=== PATIENT | female | born 1965 | race American Indian/Alaskan Native ===

== ENCOUNTER 2016-11-28 11:29 | Outpatient (CLI) | payer BC ==
--- NOTE | 2016-11-28 13:05 | Mammography Report ---
BILATERAL DIGITAL SCREENING MAMMOGRAM with CAD : 11/28/16 11:29:00 CLINICAL: Routine screening. COMPARISON:11/27/15 FINDINGS: The breasts are heterogeneously dense, which may obscure small masses. No mass, architectural distortion or suspicious calcifications. IMPRESSION: No mammographic evidence of malignancy. BI-RADS CATEGORY: 2 -- Benign RECOMMENDATION: Routine mammographic screening in one year. COMMENT: Patient follow-up letters are generated by our [employer] application.
== END 2016-11-28 11:30 | disposition home or self-care (01) ==
LOC: SPVWC 11:29
PROVIDERS: ATTEND Obstetrics & Gynecology
DX: Z12.31 Encounter for screening mammogram for malignant neoplasm of breast (principal)
CPT/HCPCS: 77067; G0202

== ENCOUNTER 2017-11-30 12:27 | Outpatient (CLI) | payer BC ==
--- NOTE | 2017-11-30 14:52 | Mammography Report ---
BILATERAL MAMMOGRAM: FINDINGS: The breast tissue is heterogeneously dense, which could obscure detection of small masses (approximately 50%-75% glandular). No mass, distortion, suspicious calcification, or skin change is seen. No significant change when compared to exams dating back to 2011. CAD was utilized. IMPRESSION: Negative mammogram. There is no mammographic evidence of malignancy. RECOMMENDATION: Follow-up per ACS guidelines. BI-RADS CATEGORY: 1 = Negative ACR BI-RADS MAMMOGRAPHIC CODES: 0 = Needs additional imaging evaluation; 1 = Negative; 2 = Benign; 3 = Probably benign; 4 = Suspicious; 5 = Malignant; 6 = Known biopsy-proven malignancy COMMENT: 1. Dense breast tissue, i.e., adenosis, fibrocystic changes, etc., may obscure an underlying neoplasm. 2. Approximately 10% of cancers are not detected with mammography. 3. A negative mammography report should not delay biopsy if a clinically suspicious mass is present. COMMENT: Patient follow-up letters are generated in [employer].
== END 2017-11-30 12:28 | disposition home or self-care (01) ==
LOC: SPVWC 12:27
PROVIDERS: ATTEND Obstetrics & Gynecology
DX: Z12.31 Encounter for screening mammogram for malignant neoplasm of breast (principal)
CPT/HCPCS: 77067

== ENCOUNTER 2018-12-18 15:13 | Outpatient (CLI) | payer BC ==
--- NOTE | 2018-12-18 16:34 | Mammography Report ---
BILATERAL DIGITAL SCREENING MAMMOGRAMS WITH CAD INDICATION: Screening. COMPARISONS: None. FINDINGS: Craniocaudal and mediolateral oblique views of both breasts were obtained using 2-D digital acquisition. In addition to standard review, the examination was analyzed for possible abnormalities using a compu ter-assisted detection device (iCAD). The breast tissue is heterogeneously dense, which may obscure small masses. A left outer asymmetry on the CC view requires additional imaging. No architectural distortion or denzel picious calcifications. The right breast is negative. IMPRESSION: Left asymmetry requiring additional imaging. Recommend recall for left ML and spot magnif ication cc views and left breast ultrasound if needed. BI-RADS CATEGORY 0: INCOMPLETE - NEED ADDITIONAL IMAGING EVALUATION AND/OR PRIOR MAMMOGRAMS FOR COMP ARISON Information is entered into a reminder system for a target due date for the next mammogram. The resul ts and recommendations were sent to the patient by mail. Signer Name: Maksmi Johnson MD Signed: 12/18/2018 4:30 PM Workstation Name: [id number]
== END 2018-12-18 15:14 | disposition home or self-care (01) ==
LOC: SPVWC 15:13
PROVIDERS: ATTEND Obstetrics & Gynecology
DX: Z12.31 Encounter for screening mammogram for malignant neoplasm of breast (principal)
CPT/HCPCS: 77067

== ENCOUNTER 2019-07-01 14:16 | Outpatient (CLI) | payer BC ==
--- NOTE | 2019-07-01 15:03 | Mammography Report ---
DIGITAL DIAGNOSTIC MAMMOGRAM WITH CAD, 07/01/2019 INDICATION: Asymmetry on screening mammogram. ABNORMAL MAMMOGRAM TECHNIQUE: Digital left mammographic imaging was performed. Magnification views were obtained. This examination was interpreted with the benefit of Computer-aided Detection analysis. COMPARISON: 12/18/2018 mammogram FINDINGS: Breast Density: There are scattered areas of fibroglandular density. ML and spot magnification CC views were performed and are negative. No persistent asymmetry. IMPRESSION: No mammographic evidence of malignancy. Follow up recommendation: Routine yearly BI-RADS Category 1: Negative. A "normal" or negative report should not discourage follow up or biopsy of a clinically significant f inding. A written summary of these findings will be mailed to the patient. The patient will be entered into a mammography reporting system which will generate a reminder letter for the patient's next appointmen t at the appropriate interval. According to the [employer], yearly mammograms are recommended starting at age 40 and continuing as long as a woman is in good health. Breast MRI is recommended for women with an malou roximately 20-25% or greater lifetime risk of breast cancer, including women with a strong family his tory of breast or ovarian cancer and women who have been treated for Hodgkin's disease. Signer Name: Maksim Johnson MD Signed: 07/01/2019 2:58 PM Workstation Name: [id number]
== END 2019-07-01 14:17 | disposition home or self-care (01) ==
LOC: SPVWC 14:16
PROVIDERS: ATTEND Obstetrics & Gynecology
DX: R92.8 Other abnormal and inconclusive findings on diagnostic imaging of breast (principal)

== ENCOUNTER 2020-12-30 12:46 | Outpatient (CLI) | payer OTHER ==
--- NOTE | 2020-12-31 09:36 | Mammography Report ---
DIGITAL SCREENING MAMMOGRAM WITH CAD, 12/30/2020 CLINICAL INFORMATION / INDICATION: Routine screening mammography. TECHNIQUE: Digital bilateral 2D mammography was obtained in the craniocaudal and mediolateral obliqu e projections. This examination was interpreted with the benefit of Computer-Aided Detection analysis . COMPARISON: 12/24/2019, 07/01/2019, 12/18/2018, 11/30/2017 FINDINGS: Breast Density: The breasts are heterogeneously dense, which may obscure small masses. No dominant mass, suspicious calcifications, or architectural distortion in either breast. IMPRESSION: No mammographic evidence of malignancy. Follow up recommendation: Routine yearly BI-RADS Category 1: Negative. A "normal" or negative report should not discourage follow up or biopsy of a clinically significant f inding. A written summary of these findings will be mailed to the patient. The patient will be entered into a mammography reporting system which will generate a reminder letter for the patient's next appointmen t at the appropriate interval. The [employer] recommends yearly mammograms starting at age 40 and continuing as l new as a woman is in good health. Breast MRI is recommended for women with an approximate 20-25% or greater lifetime risk of breast cancer, including women with a strong family history of breast or ova ace cancer or who have been treated for Hodgkin's disease. Signer Name: Mar Dawson MD Signed: 12/31/2020 9:32 AM Workstation Name: [id number]
== END 2020-12-30 12:47 | disposition home or self-care (01) ==
LOC: SPVWC 12:46
PROVIDERS: ATTEND Obstetrics & Gynecology
DX: Z12.31 Encounter for screening mammogram for malignant neoplasm of breast (principal)
CPT/HCPCS: 77067